=== PATIENT | male | born 1960 | race Hispanic/Latino ===

== ENCOUNTER 2017-06-21 17:36 | Inpatient (IN) | payer BC, MEDICARE ==
[~2017-06-21] VITALS: Ht 167.6 cm; Wt 151.0 kg
[2017-06-21 18:05] LABS: BASOPHILS % (AUTO) 1.3 % (0.0-5.0); EOSINOPHILS % (AUTO) 3.2 % (0.0-8.0); HEMATOCRIT 38.3 % (42-54); LYMPHOCYTES % (AUTO) 23.6 % (21.0-51.0); MEAN CORPUSCULAR HEMOGLOBIN 30.7 pg (27.0-33.0); MEAN CORPUSCULAR HGB CONC 34.7 g/dL (32.0-36.0); MEAN CORPUSCULAR VOLUME 88.4 fL (79-99); MONOCYTES % (AUTO) 14.9 % (3.0-13.0); PLATELET COUNT (AUTO) 241 K/uL (130-400); RED BLOOD CELL COUNT(AUTO) 4.33 MIL/uL (4.50-6.20); RED CELL DISTRIBUTION WIDTH 14.6 % (11.0-15.5); WHITE BLOOD COUNT (AUTO) 7.7 K/uL (4.8-10.8)
[2017-06-21 18:16] LABS: CREATININE 1.5 mg/dL (0.5-1.5); POTASSIUM 4.3 mmol/L (3.5-5.1)
[2017-06-21 18:21] LABS: BILIRUBIN,TOTAL 0.3 mg/dL (0.2-1.0); TOTAL PROTEIN, SERUM 7.3 g/dL (6.0-8.3)
[2017-06-21 18:41] LABS: B-TYPE NATRIURETIC PEPTIDE 6 pg/mL (0-100)
[2017-06-21 19:23] LABS: APPEARANCE,URINE Clear (CLEAR); BILIRUBIN,URINE Negative (NEGATIVE); COLOR,URINE Yellow (YELLOW); GLUCOSE, URINE (UA) Negative (NEGATIVE); KETONES,URINE Negative (NEGATIVE); LEUKOCYTE ESTERASE ,URINE Negative (NEGATIVE); NITRATE,URINE Negative (NEGATIVE); OCCULT BLOOD,URINE Negative (NEGATIVE); PH,URINE 5.5 (5.0-8.0); PROTEIN,URINE Negative (NEGATIVE)
[2017-06-21] MEDS ORDERED: IPRATROPIUM/ALBUTEROL SULFATE 3 ML SOLUTION IH ONE (23:26)
[2017-06-22] MEDS ORDERED: ONDANSETRON HCL 4 MG/2 ML VIAL IV PRN (01:30)
[2017-06-22] MEDS ORDERED: HYDRALAZINE HCL 20 MG/ML VIAL IV PRN (01:30)
[2017-06-22] MEDS ORDERED: ACETAMINOPHEN 325 MG TAB PO PRN (01:30)
[2017-06-22] MEDS ORDERED: IOPAMIDOL-370 100 ML VIAL IV ONE ×2 (01:59→03:09)
[2017-06-22] MEDS: LEVOFLOXACIN 500 MG/D5W 100 ML 100 ML IV SCH (02:00)
[2017-06-22] MEDS: FUROSEMIDE 40 MG TABLET PO SCH ×2 (02:00→14:00)
[2017-06-22] MEDS ORDERED: FUROSEMIDE 40 MG TABLET ONE (04:45)
[2017-06-22] MEDS ORDERED: LEVOFLOXACIN 500 MG/D5W 100 ML 100 ML ONE (04:45)
[2017-06-22] MEDS: IPRATROPIUM/ALBUTEROL SULFATE 3 ML SOLUTION IH SCH ×5 (06:00→22:13)
[2017-06-22] MEDS ORDERED: IPRATROPIUM/ALBUTEROL SULFATE 3 ML SOLUTION IH ONE ×3 (06:06→13:50)
[2017-06-22] MEDS ORDERED: FAMOTIDINE 20MG TAB 20 MG TAB ONE (09:42)
[2017-06-22 18:00] VITALS: BP 115/63
[2017-06-22 20:00] VITALS: BP 119/61
[2017-06-22] MEDS ORDERED: FURO40TA5 PO (20:13)
[2017-06-22] MEDS ORDERED: VENL-53 PO (20:13)
[2017-06-22] MEDS ORDERED: LORA2TAB2 PO (20:13)
[2017-06-22] MEDS ORDERED: POTA20TA82 PO (20:13)
[2017-06-22] MEDS ORDERED: BUDE10.22 IH (20:13)
[2017-06-22] MEDS ORDERED: MONT10TA24 PO (20:13)
[2017-06-22] MEDS ORDERED: LISI40TA4 PO (20:13)
[2017-06-22] MEDS: FAMOTIDINE 20MG TAB 20 MG TAB PO SCH (20:39)
[2017-06-23] VITALS (7 sets, daily range): BP systolic 94–134; BP diastolic 54–64
[2017-06-23] MEDS: IPRATROPIUM/ALBUTEROL SULFATE 3 ML SOLUTION IH SCH ×6 (01:50→23:08)
[2017-06-23] MEDS ORDERED: SODIUM CHLORIDE 3% FOR INHALATION 4 ML/AMP VIAL.NEB IH ONE (01:59)
[2017-06-23] MEDS: FUROSEMIDE 40 MG TABLET PO SCH ×2 (02:11→15:15)
[2017-06-23] MEDS: LEVOFLOXACIN 500 MG/D5W 100 ML 100 ML IV SCH (02:11)
[2017-06-23] MEDS ORDERED: SUB PER P&T FOR ASTHMA OR COPD RECOMMENDATION IH SCH (08:30)
[2017-06-23] MEDS: VENLAFAXINE HCL 50 MG TABLET PO SCH (09:00)
[2017-06-23] MEDS: POTASSIUM CHLORIDE 20 MEQ ERTAB PO SCH (09:00)
[2017-06-23] MEDS: LISINOPRIL 40 MG TABLET PO SCH (09:00)
[2017-06-23] MEDS ORDERED: LORAZEPAM 2 MG TABLET PO SCH (09:00)
[2017-06-23] MEDS: LORAZEPAM 1 MG TABLET PO SCH ×2 (09:38→21:33)
[2017-06-23] MEDS: FAMOTIDINE 20MG TAB 20 MG TAB PO SCH ×2 (11:51→21:31)
[2017-06-23] MEDS: FUROSEMIDE 10 MG/ML 4ML VIAL IV SCH ×2 (11:52→21:31)
[2017-06-23] MEDS: BUDESONIDE 0.5 MG/2 ML INH IH SCH (18:52)
[2017-06-23] MEDS ORDERED: MONTELUKAST SODIUM 10 MG TAB PO SCH (21:00)
[2017-06-24] MEDS: IPRATROPIUM/ALBUTEROL SULFATE 3 ML SOLUTION IH SCH ×2 (02:26→06:58)
[2017-06-24 03:00] VITALS: BP 71/55
[2017-06-24] MEDS: LEVOFLOXACIN 500 MG/D5W 100 ML 100 ML IV SCH (03:03)
[2017-06-24] MEDS: LORAZEPAM 1 MG TABLET PO SCH (05:48)
[2017-06-24] MEDS: BUDESONIDE 0.5 MG/2 ML INH IH SCH (07:19)
[2017-06-24] MEDS ORDERED: ALBU8.5H8 IH (08:30)
[2017-06-24] MEDS ORDERED: LEVO500T2 PO (08:30)
[2017-06-24 08:33] VITALS: BP 116/65
[2017-06-24] MEDS: FAMOTIDINE 20MG TAB 20 MG TAB PO SCH (08:43)
[2017-06-24] MEDS: LISINOPRIL 40 MG TABLET PO SCH (08:43)
[2017-06-24] MEDS: VENLAFAXINE HCL 50 MG TABLET PO SCH (08:43)
[2017-06-24] MEDS: POTASSIUM CHLORIDE 20 MEQ ERTAB PO SCH (08:43)
[2017-06-24] MEDS: FUROSEMIDE 10 MG/ML 4ML VIAL IV SCH (08:43)
[2017-06-24 11:37] VITALS: BP 119/62
== END 2017-06-24 14:05 | disposition home or self-care (01) | DRG 871 ==
LOC: EDH 17:36 → EDHIP 06-22 01:17 → 3CH 06-22 17:31
PROVIDERS: ADMIT Family Medicine; ATTEND Family Medicine
DX: A41.9 Sepsis, unspecified organism (principal); J18.9 Pneumonia, unspecified organism; Z68.43 Body mass index [BMI] 50.0-59.9, adult; J44.0 Chronic obstructive pulmonary disease with (acute) lower respiratory infection; J44.1 Chronic obstructive pulmonary disease with (acute) exacerbation; E66.01 Morbid (severe) obesity due to excess calories; E87.70 Fluid overload, unspecified; F41.9 Anxiety disorder, unspecified; G47.30 Sleep apnea, unspecified; I10 Essential (primary) hypertension; Z87.891 Personal history of nicotine dependence
CPT/HCPCS: 36415; 71045; 71275; 80053; 81003; 83605; 83880; 85025; 85378; 93306; 94640; 94664; 99291; J1940; J1956; Q9967

== ENCOUNTER 2017-07-04 03:48 | Emergency (ER) | payer MEDICARE ==
[~2017-07-04 03:48] MED LIST: ALBU8.5H8 IH; BUDE10.22 IH; FURO40TA5 PO; LEVO500T2 PO; LISI40TA4 PO; LORA2TAB2 PO; MONT10TA24 PO; POTA20TA82 PO; VENL-53 PO
[2017-07-04 05:08] LABS: BASOPHILS % (AUTO) 0.9 % (0.0-5.0); EOSINOPHILS % (AUTO) 2.6 % (0.0-8.0); HEMATOCRIT 40.5 % (42-54); LYMPHOCYTES % (AUTO) 20.1 % (21.0-51.0); MEAN CORPUSCULAR HEMOGLOBIN 29.3 pg (27.0-33.0); MEAN CORPUSCULAR HGB CONC 33.2 g/dL (32.0-36.0); MEAN CORPUSCULAR VOLUME 88.3 fL (79-99); MONOCYTES % (AUTO) 11.6 % (3.0-13.0); NEUTROPHILS % (AUTO) 64.8 % (40.0-77.0); PLATELET COUNT (AUTO) 288 K/uL (130-400); RED BLOOD CELL COUNT(AUTO) 4.59 MIL/uL (4.50-6.20)
[2017-07-04 05:09] LABS: APPEARANCE,URINE Clear (CLEAR); BILIRUBIN,URINE Negative (NEGATIVE); COLOR,URINE Yellow (YELLOW); GLUCOSE, URINE (UA) Negative (NEGATIVE); KETONES,URINE Negative (NEGATIVE); LEUKOCYTE ESTERASE ,URINE Negative (NEGATIVE); NITRATE,URINE Negative (NEGATIVE); OCCULT BLOOD,URINE Negative (NEGATIVE); PROTEIN,URINE Negative (NEGATIVE); UROBILINOGEN,URINE 0.2 mg/dL (0.2-1.0)
[2017-07-04 05:16] LABS: AMPHET/METH SCREEN,URINE NEGATIVE (NEGATIVE); BARBITURATE SCREEN, URINE NEGATIVE (NEGATIVE); BENZODIAZEPINES SCREEN,URINE NEGATIVE (NEGATIVE); CANNABINOID SCREEN,URINE NEGATIVE (NEGATIVE); COCAINE SCREEN,URINE NEGATIVE (NEGATIVE); OPIATE SCREEN,URINE NEGATIVE (NEGATIVE); PHENCYCLIDINE SCREEN,URINE NEGATIVE (NEGATIVE)
[2017-07-04 05:17] LABS: CREATININE 1.1 mg/dL (0.5-1.5); POTASSIUM 4.6 mmol/L (3.5-5.1)
[2017-07-04 05:19] LABS: INR 0.96 (0.85-1.15); PARTIAL THROMBOPLASTIN TIME 26.1 SEC (26.3-35.5); PROTHROMBIN TIME 10.1 SEC (9.6-11.6)
[2017-07-04 05:27] LABS: B-TYPE NATRIURETIC PEPTIDE 6 pg/mL (0-100)
[2017-07-04 05:31] LABS: ALBUMIN 3.4 g/dL (3.5-5.0); BILIRUBIN,TOTAL 0.3 mg/dL (0.2-1.0); CREATINE KINASE MB 0.8 ng/mL (0.5-3.6); TOTAL PROTEIN, SERUM 7.4 g/dL (6.0-8.3)
[2017-07-04] MEDS ORDERED: AZITHROMYCIN 250 MG TABLET PO ONE (05:49)
[2017-07-04] MEDS ORDERED: LEVOFLOXACIN 500 MG TABLET ONE (06:16)
== END 2017-07-04 07:14 | disposition home or self-care (01) ==
LOC: EDH 03:48
DX: J15.8 Pneumonia due to other specified bacteria (principal); I10 Essential (primary) hypertension; E66.01 Morbid (severe) obesity due to excess calories; Z68.43 Body mass index [BMI] 50.0-59.9, adult
CPT/HCPCS: 36415; 71045; 80053; 80305; 81003; 82550; 82553; 83880; 84484; 85025; 85610; 85730; 93005

== ENCOUNTER 2017-10-10 18:49 | Emergency (ER) | payer MEDICARE ==
[2017-10-10 19:34] LABS: EOSINOPHILS % (AUTO) 3.1 % (0.0-8.0); HEMATOCRIT 40.3 % (42-54); LYMPHOCYTES % (AUTO) 23.1 % (21.0-51.0); MEAN CORPUSCULAR HEMOGLOBIN 29.7 pg (27.0-33.0); MEAN CORPUSCULAR HGB CONC 33.8 g/dL (32.0-36.0); MEAN CORPUSCULAR VOLUME 87.8 fL (79-99); MONOCYTES % (AUTO) 7.7 % (3.0-13.0); NEUTROPHILS % (AUTO) 65.1 % (40.0-77.0); PLATELET COUNT (AUTO) 323 K/uL (130-400); RED BLOOD CELL COUNT(AUTO) 4.59 MIL/uL (4.50-6.20); RED CELL DISTRIBUTION WIDTH 13.7 % (11.0-15.5)
[2017-10-10 19:46] LABS: APPEARANCE,URINE Clear (CLEAR); BILIRUBIN,URINE Negative (NEGATIVE); COLOR,URINE Yellow (YELLOW); GLUCOSE, URINE (UA) Negative (NEGATIVE); KETONES,URINE Negative (NEGATIVE); LEUKOCYTE ESTERASE ,URINE Negative (NEGATIVE); NITRATE,URINE Negative (NEGATIVE); OCCULT BLOOD,URINE Negative (NEGATIVE); PROTEIN,URINE Negative (NEGATIVE)
[2017-10-10 19:46] LABS: CREATININE 1.6 mg/dL (0.5-1.5); POTASSIUM 4.2 mmol/L (3.5-5.1)
[2017-10-10 19:51] LABS: INR 0.96 (0.85-1.15); PARTIAL THROMBOPLASTIN TIME 26.8 SEC (26.3-35.5); PROTHROMBIN TIME 10.1 SEC (9.6-11.6)
[2017-10-10] MEDS ORDERED: CEFTRIAXONE SODIUM 1 GM ONE (19:56)
[2017-10-10] MEDS ORDERED: AZITHROMYCIN 250 MG TABLET PO ONE (19:57)
[2017-10-10 20:00] LABS: ALBUMIN 3.2 g/dL (3.5-5.0); BILIRUBIN,TOTAL 0.2 mg/dL (0.2-1.0); CREATINE KINASE MB 2.1 ng/mL (0.5-3.6); TOTAL PROTEIN, SERUM 7.8 g/dL (6.0-8.3)
[2017-10-10 20:16] LABS: B-TYPE NATRIURETIC PEPTIDE 5 pg/mL (0-100)
[2017-10-10] MEDS ORDERED: IPRATROPIUM/ALBUTEROL SULFATE 3 ML SOLUTION IH ONE (20:48)
== END 2017-10-11 00:21 | disposition home or self-care (01) ==
LOC: EDH 18:49
DX: J18.9 Pneumonia, unspecified organism (principal); I10 Essential (primary) hypertension; Z72.0 Tobacco use
CPT/HCPCS: 36415; 71045; 80053; 81003; 82553; 83880; 84484; 85025; 85610; 85730; 93005; 94640; 96374; 99285; J0696

== ENCOUNTER 2021-02-27 17:55 | Emergency (ER) | payer MEDICARE ==
[~2021-02-27] VITALS: Ht 167.6 cm; Wt 109.8 kg
[~2021-02-27 17:55] MED LIST changes: -LISI40TA4 PO; +LISI40TA9 PO; +MONT-39 PO; -MONT10TA24 PO; +POTA-202 PO; -POTA20TA82 PO
[2021-02-27 18:54] LABS: BASOPHILS % (AUTO) 0.7 % (0.0-5.0); EOSINOPHILS % (AUTO) 2.3 % (0.0-8.0); HEMATOCRIT 45.7 % (42-54); MEAN CORPUSCULAR HEMOGLOBIN 28.8 pg (27.0-33.0); MEAN CORPUSCULAR HGB CONC 32.8 g/dL (32.0-36.0); MEAN CORPUSCULAR VOLUME 87.7 fL (79-99); MONOCYTES % (AUTO) 7.1 % (3.0-13.0); NEUTROPHILS % (AUTO) 70.7 % (40.0-77.0); PLATELET COUNT (AUTO) 269 K/uL (130-400); RED BLOOD CELL COUNT(AUTO) 5.21 MIL/uL (4.50-6.20); RED CELL DISTRIBUTION WIDTH 13.2 % (11.0-15.5); WHITE BLOOD COUNT (AUTO) 13.9 K/uL (4.8-10.8)
[2021-02-27 18:55] LABS: APPEARANCE,URINE Clear (CLEAR); BILIRUBIN,URINE Negative (NEGATIVE); COLOR,URINE Yellow (YELLOW); GLUCOSE, URINE (UA) Negative (NEGATIVE); KETONES,URINE Trace mg/dL (NEGATIVE); LEUKOCYTE ESTERASE ,URINE Negative (NEGATIVE); NITRATE,URINE Negative (NEGATIVE); OCCULT BLOOD,URINE Negative (NEGATIVE); PH,URINE 5.5 (5.0-8.0); PROTEIN,URINE Negative (NEGATIVE); UROBILINOGEN,URINE 0.2 mg/dL (0.2-1.0)
[2021-02-27 19:09] LABS: ALBUMIN 3.6 g/dL (3.5-5.0); BILIRUBIN,TOTAL 0.2 mg/dL (0.2-1.0); TOTAL PROTEIN, SERUM 8.4 g/dL (6.0-8.3)
[2021-02-27 19:20] LABS: PROTHROMBIN TIME 10.9 SEC (9.6-11.6)
[2021-02-27 19:22] LABS: PARTIAL THROMBOPLASTIN TIME 27.1 SEC (26.3-35.5)
[2021-02-27 19:29] VITALS: BP 128/64
[2021-02-27] MEDS ORDERED: AZITHROMYCIN 250 MG TABLET PO ONE (19:30)
[2021-02-27] MEDS ORDERED: CEFTRIAXONE 1G VIAL IVP ONE (19:30)
[2021-02-27] MEDS ORDERED: KETOROLAC 60 MG VIAL (30MG/ML) IM ONE (19:30)
[2021-02-27] MEDS ORDERED: AZIT500T4 PO (19:36)
[2021-02-27] MEDS ORDERED: ALBU8.5H8 IH (19:36)
[2021-02-27] MEDS ORDERED: NAPR-1180 PO (19:37)
== END 2021-02-27 20:42 | disposition home or self-care (01) ==
LOC: EDH 17:55
DX: S29.011A Strain of muscle and tendon of front wall of thorax, initial encounter (principal); J18.9 Pneumonia, unspecified organism; E11.9 Type 2 diabetes mellitus without complications; F17.200 Nicotine dependence, unspecified, uncomplicated; Z79.1 Long term (current) use of non-steroidal anti-inflammatories (NSAID); Z79.51 Long term (current) use of inhaled steroids; Z79.899 Other long term (current) drug therapy; X58.XXXA Exposure to other specified factors, initial encounter; Y93.89 Activity, other specified; Y92.89 Other specified places as the place of occurrence of the external cause; Y99.8 Other external cause status
CPT/HCPCS: 36415; 71045; 80053; 81003; 82150; 83690; 84484; 85025; 85610; 85730; 93005; 96372; 96374; 99285; J0696; J1885

== ENCOUNTER 2021-12-04 16:55 | Emergency (ER) | payer MEDICARE ==
[~2021-12-04] VITALS: Ht 167.6 cm; Wt 106.6 kg
[~2021-12-04 16:55] MED LIST changes: +AZIT500T4 PO; +NAPR-1180 PO
[2021-12-04] MEDS ORDERED: ACETAMINOPHEN WITH CODEINE 1 TAB TAB PO ONE (17:30)
[2021-12-04 18:08] LABS: BASOPHILS % (AUTO) 0.6 % (0.0-5.0); EOSINOPHILS % (AUTO) 0.9 % (0.0-8.0); LYMPHOCYTES % (AUTO) 14.1 % (21.0-51.0); MEAN CORPUSCULAR HGB CONC 33.1 g/dL (32.0-36.0); MEAN CORPUSCULAR VOLUME 84.5 fL (79-99); MONOCYTES % (AUTO) 9.6 % (3.0-13.0); NEUTROPHILS % (AUTO) 73.6 % (40.0-77.0); PLATELET COUNT (AUTO) 216 K/uL (130-400); RED BLOOD CELL COUNT(AUTO) 5.68 MIL/uL (4.50-6.20); RED CELL DISTRIBUTION WIDTH 13.1 % (11.0-15.5); WHITE BLOOD COUNT (AUTO) 14.6 K/uL (4.8-10.8)
[2021-12-04 18:22] LABS: CREATININE 1.6 mg/dL (0.5-1.5); POTASSIUM 3.5 mmol/L (3.5-5.1)
[2021-12-04 18:27] LABS: ALBUMIN 3.5 g/dL (3.5-5.0); TOTAL PROTEIN, SERUM 8.7 g/dL (6.0-8.3)
[2021-12-04] MEDS ORDERED: TRAM50TA2 PO (18:49)
[2021-12-04 18:51] VITALS: BP 137/73
== END 2021-12-04 19:00 | disposition home or self-care (01) ==
LOC: EDH 16:55
DX: M25.572 Pain in left ankle and joints of left foot (principal); M79.672 Pain in left foot; E11.9 Type 2 diabetes mellitus without complications; E78.00 Pure hypercholesterolemia, unspecified; F41.9 Anxiety disorder, unspecified; I10 Essential (primary) hypertension; F17.200 Nicotine dependence, unspecified, uncomplicated; Z79.1 Long term (current) use of non-steroidal anti-inflammatories (NSAID); Z79.51 Long term (current) use of inhaled steroids; X50.1XXA Overexertion from prolonged static or awkward postures, initial encounter; Y93.89 Activity, other specified; Y92.89 Other specified places as the place of occurrence of the external cause; Y99.8 Other external cause status
CPT/HCPCS: 36415; 73610; 80053; 85025; 93971